=== PATIENT | female | born 1995 ===

== ENCOUNTER → 2023-01-23 | Outpatient (CLI) | payer MEDICAID ==
[2023-01-24 09:06] LABS: Mumps IgG Antibody 51.6 AU/mL (Immune >10.9); Rubeola IgG Antibody 58.7 AU/mL (Immune >16.4)
[2023-01-25 09:52] LABS: Hepatitis A Total Antibody Negative (Negative)
[2023-01-25 11:23] LABS: Hepatitis B Surface Antibody Negative (Negative)
== END | disposition home or self-care (01) ==
LOC: LAB 15:22
PROVIDERS: ATTEND Nurse Practitioner Family
DX: Z23 Encounter for immunization (principal)
CPT/HCPCS: 36415; 86706; 86708; 86735; 86762; 86765; 86787